=== PATIENT | female | born 1955 | race Hispanic/Latino ===

== ENCOUNTER 2024-12-16 10:33 | Emergency (ER) | payer MEDICARE ==
[~2024-12-16] VITALS: Ht 165.1 cm; Wt 75.0 kg
[2024-12-16] MEDS ORDERED: KETOROLAC TROMETHAMINE 30 MG/ML VIAL ONE (11:07)
[2024-12-16] MEDS ORDERED: SODIUM CHLORIDE 0.9% 1000ML 1,000 ML ONE (11:07)
[2024-12-16] MEDS: KETOROLAC TROMETHAMINE 30 MG/ML VIAL IV ONE (11:08)
[2024-12-16] MEDS: SODIUM CHLORIDE 0.9% 1000ML 1,000 ML IV STA (11:08)
[2024-12-16] MEDS ORDERED: IOPAMIDOL 370 MG/ML 100 ML INFUS..BTL INJ ONE (12:07)
[2024-12-16] MEDS ORDERED: CEFDINIR300 MG PO (12:41)
[2024-12-16] MEDS ORDERED: TYLENOL325 MG PO (12:41)
[2024-12-16 12:45] VITALS: PULSE 55; RESP 18; TEMP 98.3; O2SAT 95
== END 2024-12-16 13:13 | disposition home or self-care (01) ==
LOC: FSED 10:51
DX: J18.1 Lobar pneumonia, unspecified organism (principal); J06.9 Acute upper respiratory infection, unspecified; J90 Pleural effusion, not elsewhere classified; R05.9 Cough, unspecified; M54.9 Dorsalgia, unspecified; R07.89 Other chest pain
CPT/HCPCS: 71260; 80053; 81003; 84484; 85025; 85379; 93005; 99283; J0696; J1885; J7030; Q9967